=== PATIENT | female | born 1970 | race Caucasian/White ===

== ENCOUNTER → 2016-07-01 | Outpatient (CLI) | payer OTHER ==
[~2016-07-01] MED LIST: CALCTAB93 PO; CELEBREX PO; COLA50CA3 PO; IRONTAB3 PO; ISOVUE-370 76% 100ML VIAL (Q9967) As Ordered ONE; NORCOTAB PO; VICODAN PO; VITAMIN D PO
--- NOTE | 2016-07-01 14:48 | REP ---
CT STUDY OF THE ABDOMEN AND PELVIS WITHOUT AND WITH IV CONTRAST: WITHOUT ORAL CONTRAST. HISTORY: Urinary tract infection, pain in bilateral flanks. Attention ureters and bladder. Comparison is made with images from CT study of the chest dated 12/13/2013. CT CONTRAST DOSE: 100 mL of Isovue-370 is administered intravenously by autoinjector. 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 Tubal ligation clamps are noted in the pelvis. Bowel gas pattern is normal. The lung bases are essentially clear with mild fibrotic changes. No pleural effusion or upper abdominal ascites is seen. The liver and the spleen are normal in size and homogeneous in texture. No adrenal lesion is seen on either side. No pancreatic abnormality is observed. The gallbladder is small and contracted in appearance but otherwise unremarkable. Precontrast images of the kidneys show no evidence of intrarenal calculus on either side. There is no evidence of hydronephrosis or hydroureter. The course of the distal ureters are obscured by spray artifact from the bilateral hip prostheses but otherwise unremarkable. No mass or cyst is seen in either kidney. Delayed scan images show no filling defect in the collecting system on either side. Urinary bladder is unremarkable. There is an anastomotic suture line in the rectum. This suggests a previous left colon resection and reanastomosis. A normal appendix is seen in the central pelvis. There is a cyst in the right ovary measuring 3.8 cm in greatest diameter. The uterus appears to be surgically absent. No abdominal wall defect is seen. Small and large intestinal bowel loops are unremarkable. No bony destructive lesion is seen. IMPRESSION: No evidence of hydronephrosis or urinary calculus on either side. There is a 3.7 cm cyst in the right ovary. [place] artifact is seen in the central pelvis from hip prostheses. The patient is status post hysterectomy, and tubal ligation clamps are seen in the pelvis. There also appears to be an anastomotic suture line in the rectum. Signed by Alden Rodriguez MD 07/01/2016 03:29 P
== END ==
LOC: M RAD 13:33
DX: R10.9 Unspecified abdominal pain (principal)
CPT/HCPCS: 74178; Q9967

== ENCOUNTER → 2016-07-13 | Outpatient (CLI) | payer OTHER ==
[~2016-07-13] MED LIST changes: -ISOVUE-370 76% 100ML VIAL (Q9967) As Ordered ONE
--- NOTE | 2016-07-14 10:00 | RADONC ---
RADIATION ONCOLOGY FOLLOWUP NOTE: DATE: 07/13/2016 CHART NO: [id number] DIAGNOSIS: Right breast cancer. STAGE: Stage II A, T2N0M0 Stage I A, M3xB0M0 ECOG PERFORMANCE STATUS: 0 Ms. Patel is a very pleasant 45-year-old white female with the diagnosis of two right-sided breast carcinomas; the first is a stage II A, T2N0M0 and the second is a stage I A, [id number]. Both were moderately differentiated invasive ductal carcinomas and were adjacent to each other. The patient presents today reporting that she is doing quite well with no complaints at this time related to her radiation therapy or disease. She is here for routine followup visit 2 years post completion of external beam radiation therapy. REVIEW OF SYSTEMS: The patient's review of systems is noncontributory. She denies nausea, vomiting, fevers, chills, night sweats, diplopia, headaches, anxiety or depression, anorexia, weight loss, visual disturbances, chest pain, urinary or bowel difficulties, bone pain, or neurological problems. PHYSICAL EXAMINATION: The patient is a well-developed, well-nourished female in no acute distress. HEENT exam is normocephalic, atraumatic. Extraocular movements are intact. There is no palpable cervical, supraclavicular, infraclavicular, axillary, or inguinal lymphadenopathy present. Lungs are clear to auscultation and percussion. Heart has a regular rate and rhythm. Abdomen is benign with no hepatosplenomegaly, masses, or tenderness. Breast examination reveals no masses or discharge bilaterally. Skeletal examination reveals no tenderness to pressure or percussion of the bony skeleton. Extremities reveal no clubbing, cyanosis, or edema. Neurologic exam is grossly intact, as is the remainder of the physical examination. ASSESSMENT The patient is clinically [place] at this time and will be seen by us again in 6 months for further followup. She will also continue to be followed by her other physicians as well. cc: Eryn Terry MD *Alek Andrews MD
== END ==
LOC: M ONCR 13:17
PROVIDERS: ATTEND Radiology Radiation Oncology
DX: C50.311 Malignant neoplasm of lower-inner quadrant of right female breast (principal)

== ENCOUNTER → 2016-07-19 | Outpatient (REF) | payer OTHER ==
[2016-07-19 20:43] LABS: FOLLICLE STIMULATING HORMONE 32.8 mIU/mL; LUTEINIZING HORMONE 18.8 mIU/mL
[2016-07-19 20:45] LABS: ESTRADIOL < 19.0 PG/ML
== END ==
LOC: M LAB REF 12:31
PROVIDERS: ATTEND Internal Medicine Medical Oncology
DX: C50.919 Malignant neoplasm of unspecified site of unspecified female breast (principal)

== ENCOUNTER → 2017-01-11 | Outpatient (CLI) | payer OTHER ==
[~2017-01-11] MED LIST changes: +AMOX500C; +CHLO0.12; +IBUP-1022 PO; +TAMO10TA; +TRAM50TA2 PO; +[UNRECOGNIZED DRUG - CODE]
--- NOTE | 2017-01-12 12:10 | RADONC ---
RADIATION ONCOLOGY FOLLOWUP NOTE DATE: 01/11/2017 CHART NUMBER: [id number] DIAGNOSIS: Right breast cancer. STAGE IIA, T2N0M0. STAGE 1A, [id number]. ECOG PERFORMANCE STATUS: 0 FOLLOWUP NOTE: Ms. Patel is a very pleasant 46-year-old white female with the diagnosis of two right-sided breast carcinomas, the first being a stage IIA, T2N0M0, and the second being a stage IA, [id number], both were moderately differentiated invasive ductal carcinomas and were adjacent to each other. The patient presents today reporting that she is doing quite well with no complaints at this time related to her radiation therapy or disease now 2-1/2 years post completion of external beam radiation therapy. The patient presents today reporting that she has had breast reconstruction done and she is quite happy with the results. The patient's review of systems is noncontributory. She denies nausea, vomiting, fevers, chills, night sweats, diplopia, headaches, anxiety or depression, anorexia, weight loss, visual disturbances, chest pain, urinary or bowel difficulties, bone pain, or neurological problems. PHYSICAL EXAMINATION: The patient is a well-developed, well-nourished female in no acute distress. HEENT exam is normocephalic, atraumatic. Extraocular movements are intact. There is no palpable cervical, supraclavicular, infraclavicular, axillary, or inguinal lymphadenopathy present. Lungs are clear to auscultation and percussion. Heart has a regular rate and rhythm. Abdomen is benign with no hepatosplenomegaly, masses, or tenderness. The patient's left breast is free of masses or discharge. Her right chest wall shows breast reconstruction present. There is no evidence of nodularity, ulceration, residual or recurrent disease present. Skeletal examination reveals no tenderness to pressure or percussion of the bony skeleton. Extremities reveal no clubbing, cyanosis, or edema. Neurologic exam is grossly intact, as is the remainder of the physical examination. ASSESSMENT: The patient is clinically [place] at this time and will be seen by us again in 6 months for further followup. She will also continue to be followed by Dr. Andrews and Dr. Eryn Terry as well. cc: MD Alek Felipe MD
== END ==
LOC: M ONCR 13:08
PROVIDERS: ATTEND Radiology Radiation Oncology
DX: C50.311 Malignant neoplasm of lower-inner quadrant of right female breast (principal)

== ENCOUNTER → 2017-01-13 | Outpatient (CLI) | payer OTHER ==
--- NOTE | 2017-01-13 17:23 | REPMRS ---
Patient History The patient states she had a clinical breast exam in December 2016.Family history of ovarian cancer in mother at age 50 or over, colorectal cancer in paternal aunt at age 50 or over, and breast cancer in maternal aunt at age 50. Benign radio exam breast specimen of the right breast, February 11, 2015. Benign stereotatic loc for ea lesion of the right breast, February 11, 2015. Took hormonal contraceptives for 4 years. Digital Mammo Screening Bilat: January 13, 2017 - Exam #: [id number] Bilateral CC and MLO view(s) were taken. Technologist: Trisha Monzon, Technologist Prior study comparison: January 12, 2016, bilateral digital mammo screening bilat performed at [facility]. January 06, 2015, digital mammo diagnostic bilateral performed at [facility]. FINDINGS: The breast tissue is heterogeneously dense. This may lower the sensitivity of mammography. There is no evidence of cancer on this mammogram. No significant changes when compared with prior studies. ASSESSMENT: BI-RADS/ACR category 2 mammogram. Benign finding(s). Recommendation Routine screening mammogram of both breasts in 1 year (for women over age 40). This mammogram was interpreted with the aid of an FDA-approved computer-aided dectection system. Electronically Signed By: Juancarlos Bass MD 01/13/17 0996
== END ==
LOC: M RAD 09:07
PROVIDERS: ATTEND Family Medicine
DX: Z12.31 Encounter for screening mammogram for malignant neoplasm of breast (principal)

== ENCOUNTER → 2017-01-19 | Outpatient (REF) | payer OTHER ==
[2017-01-19 14:08] LABS: ESTRADIOL 182.1 PG/ML; FOLLICLE STIMULATING HORMONE 66.1 mIU/mL; LUTEINIZING HORMONE 43.2 mIU/mL
== END ==
LOC: M LAB REF 12:48
PROVIDERS: ATTEND Internal Medicine Medical Oncology
DX: C50.919 Malignant neoplasm of unspecified site of unspecified female breast (principal)

== ENCOUNTER 2017-01-20 18:35 | Emergency (ER) | payer OTHER ==
[~2017-01-20] VITALS: Ht 167.6 cm; Wt 70.0 kg
[~2017-01-20 18:35] MED LIST changes: -AMOX500C; -CHLO0.12; -IBUP-1022 PO; -TAMO10TA; -TRAM50TA2 PO; -[UNRECOGNIZED DRUG - CODE]
[2017-01-20 18:36] VITALS: BP 145/91
[2017-01-20] MEDS ORDERED: CHLO0.12 (18:46)
[2017-01-20] MEDS ORDERED: [UNRECOGNIZED DRUG - CODE] (18:46)
[2017-01-20] MEDS ORDERED: AMOX500C (18:46)
[2017-01-20] MEDS ORDERED: TAMO10TA (18:46)
[2017-01-20] MEDS ORDERED: IBUP-1022 PO (20:22)
[2017-01-20] MEDS ORDERED: TRAM50TA2 PO (20:22)
--- NOTE | 2017-01-20 20:27 | ED PDOC ---
Post-Departure Follow-Up pt has contacted police and is seeking an order of protection. 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 ok to send pt home with one tramadol, as she is driving Toribio Holguin Jan 20, 2017 20:27
[2017-01-20] MEDS ORDERED: IBUPROFEN 600 MG TAB PO ONE (20:30)
[2017-01-20] MEDS ORDERED: traMADol 50 MG TAB PO ONE (20:30)
== END 2017-01-20 21:00 | disposition home or self-care (01) ==
LOC: M ED 18:35
DX: S46.911A Strain of unspecified muscle, fascia and tendon at shoulder and upper arm level, right arm, initial encounter (principal); Y04.8XXA Assault by other bodily force, initial encounter; Y92.9 Unspecified place or not applicable; Y93.9 Activity, unspecified; Y99.9 Unspecified external cause status; M75.101 Unspecified rotator cuff tear or rupture of right shoulder, not specified as traumatic; Z79.899 Other long term (current) drug therapy; Z88.6 Allergy status to analgesic agent; Z88.1 Allergy status to other antibiotic agents; Z88.5 Allergy status to narcotic agent; Z91.040 Latex allergy status

== ENCOUNTER → 2017-07-12 | Outpatient (CLI) | payer OTHER | LOC: M ONCR 11:24 | DX: Z08 Encounter for follow-up examination after completed treatment for malignant neoplasm (principal); Z85.3 Personal history of malignant neoplasm of breast | CPT/HCPCS: G0463 ==

== ENCOUNTER → 2017-07-24 | Outpatient (REF) | payer OTHER ==
[2017-07-24 13:41] LABS: ESTRADIOL 56.1 PG/ML
[2017-07-24 13:41] LABS: LUTEINIZING HORMONE 33.1 mIU/mL
[2017-07-24 13:42] LABS: FOLLICLE STIMULATING HORMONE 53.4 mIU/mL
== END ==
LOC: M LAB REF 13:16
DX: C50.919 Malignant neoplasm of unspecified site of unspecified female breast (principal)
CPT/HCPCS: 83001

== ENCOUNTER → 2017-09-08 | Outpatient (CLI) | payer OTHER | LOC: M RAD 14:46 | DX: R91.8 Other nonspecific abnormal finding of lung field (principal) | CPT/HCPCS: 71250 ==

== ENCOUNTER → 2018-01-10 | Outpatient (CLI) | payer OTHER | LOC: M ONCR 11:29 | DX: C50.311 Malignant neoplasm of lower-inner quadrant of right female breast (principal); Z92.3 Personal history of irradiation | CPT/HCPCS: G0463 ==

== ENCOUNTER → 2018-03-01 | Outpatient (CLI) | payer OTHER | LOC: M RAD 17:24 | DX: Z12.31 Encounter for screening mammogram for malignant neoplasm of breast (principal); Z92.89 Personal history of other medical treatment; Z92.0 Personal history of contraception; Z80.41 Family history of malignant neoplasm of ovary | CPT/HCPCS: 77067 ==

== ENCOUNTER → 2018-04-03 | Outpatient (REF) | payer OTHER ==
[2018-04-03 18:23] LABS: APPEARANCE, URINE CLEAR (CLEAR); BACTERIA, URINE AUTO NEGATIVE (NEGATIVE); BILIRUBIN, URINE AUTO NEGATIVE (NEGATIVE); BLOOD, URINE BLOOD NEGATIVE (NEGATIVE); COLOR, URINE YELLOW (YELLOW); GLUCOSE, URINE (UA) AUTO NEGATIVE (NEGATIVE); KETONE, URINE AUTO NEGATIVE (NEGATIVE); LEUKOCYTE ESTERASE, URINE AUTO NEGATIVE (NEGATIVE); NITRITE, URINE AUTO NEGATIVE (NEGATIVE); PROTEIN, URINE AUTO NEGATIVE (NEGATIVE); RBC, URINE AUTO 0 /HPF (0-3); SPECIFIC GRAVITY URINE AUTO 1.012 (1.002-1.035); SQUAMOUS EPITHELIAL CELL UR AU 0 /HPF (0-6); UROBILINOGEN, URINE AUTO 0.2 mg/dL (0.0-2.0); WBC, URINE AUTO 0 /HPF (0-3)
== END ==
LOC: M LAB REF 16:29
DX: N39.0 Urinary tract infection, site not specified (principal)

== ENCOUNTER 2018-05-04 19:53 | Emergency (ER) | payer OTHER ==
[~2018-05-04] VITALS: Ht 167.6 cm; Wt 73.6 kg
[~2018-05-04 19:53] MED LIST changes: -CLAR10CA3 PO; -CLON0.5T8 PO; -CYCL10TA PO; -KETO10TAB PO
[2018-05-04 19:54] VITALS: BP 126/80
[2018-05-04] MEDS ORDERED: CLON0.5T8 PO (20:18)
[2018-05-04] MEDS ORDERED: CLAR10CA3 PO (20:18)
[2018-05-04] MEDS ORDERED: CYCLOBENZAPRINE 10 MG TAB PO ONE (22:00)
[2018-05-04] MEDS ORDERED: KETOROLAC TROMETHAMINE 10 MG TAB PO ONE (22:00)
[2018-05-04] MEDS ORDERED: KETO10TAB PO (22:25)
[2018-05-04] MEDS ORDERED: CYCL10TA PO (22:25)
--- NOTE | 2018-05-05 08:47 | REP ---
Right hand series: Four views. History: Injury in a fall. Findings: Four views right hand show overall normal mineralization. There is no visible fracture or subluxation. Osteoarthritis is seen at the first carpometacarpal and first metacarpal phalangeal articulations. Impression: No fracture seen. Electronically Signed by Alden Rodriguez MD 05/05/2018 08:39 A
--- NOTE | 2018-05-05 08:54 | REP ---
Right knee series: Five views. History: Injury in a fall. Findings: Five views of the right knee demonstrate diffuse osteopenia. There is osteoarthritic spurring in the medial, lateral, and patellofemoral compartments. There is well established spur formation. Sclerosis is seen on either side of the lateral compartment. No fracture is seen. There is a possible loose body posteriorly. Impression: No fracture noted. Three compartment osteoarthritis. Possible osteocartilaginous loose body posteriorly. Electronically Signed by Alden Rodriguez MD 05/05/2018 09:27 A
== END 2018-05-04 22:36 | disposition home or self-care (01) ==
LOC: M ED 19:53
DX: S60.051A Contusion of right little finger without damage to nail, initial encounter (principal); S29.012A Strain of muscle and tendon of back wall of thorax, initial encounter; S83.91XA Sprain of unspecified site of right knee, initial encounter; W00.0XXA Fall on same level due to ice and snow, initial encounter; Y92.481 Parking lot as the place of occurrence of the external cause; F41.9 Anxiety disorder, unspecified; K90.0 Celiac disease; Z79.899 Other long term (current) drug therapy; Z88.1 Allergy status to other antibiotic agents; Z88.5 Allergy status to narcotic agent; Z88.8 Allergy status to other drugs, medicaments and biological substances; Z91.040 Latex allergy status; Z87.891 Personal history of nicotine dependence

== ENCOUNTER → 2018-05-04 | Outpatient (CLI) | payer OTHER ==
[~2018-05-04] MED LIST changes: +AMOX500C; +CELE100C PO; +CHLO0.12; +CLAR10CA3 PO; +CLON0.5T8 PO; +CYCL10TA PO; +GABA-1171 PO; +IBUP-1022 PO; +KETO10TAB PO; +TAMO10TA; +TAMO20TA8 PO; +TRAM50TA2 PO; +[UNRECOGNIZED DRUG - CODE]
[2018-05-04 10:22] LABS: BASO # 0.1 10^3/uL (0.0-0.2); EOS # 0.1 10^3/uL (0.0-0.50); EOS % 1.5 % (0.0-3.0); HEMATOCRIT 39.2 % (36.0-47.0); LYMPH # 1.5 10^3/uL (1.5-4.5); LYMPH % 20.6 % (24.0-44.0); MEAN CORPUSCULAR HEMOGLOBIN 30.6 pg (27.0-33.0); MEAN CORPUSCULAR HGB CONC 33.2 g/dl (32.0-36.5); MEAN CORPUSCULAR VOLUME 92.2 fl (80.0-96.0); MONO # 0.6 10^3/uL (0.0-0.8); MONO % 8.3 % (0.0-5.0); NEUTROPHILS # 4.9 10^3/uL (1.8-7.7); NEUTROPHILS % 68.3 % (36.0-66.0); PLATELET COUNT, AUTOMATED 298 10^3/uL (150-450); RED BLOOD COUNT 4.25 10^6/uL (4.00-5.40); WHITE BLOOD COUNT 7.1 10^3/uL (4.0-10.0)
[2018-05-04 10:54] LABS: ALBUMIN 3.7 GM/DL (3.2-5.2); ALT/SGPT 21 U/L (12-78); BILIRUBIN,TOTAL 0.3 MG/DL (0.2-1.0); BLOOD UREA NITROGEN 11 MG/DL (7-18); CALCIUM LEVEL 9.2 MG/DL (8.5-10.1); CARBON DIOXIDE LEVEL 26 MEQ/L (21-32); CHLORIDE LEVEL 106 MEQ/L (98-107); CHOLESTEROL LEVEL 187 MG/DL (<200); CHOLESTEROL RISK RATIO 2.428 (<5); CREATININE FOR GFR 0.79 MG/DL (0.55-1.30); FERRITIN 58 NG/ML (8-252); FREE T4 0.97 NG/DL (0.76-1.46); GLOMERULAR FILTRATION RATE > 60.0 (>58); GLUCOSE, FASTING 84 MG/DL (70-100); HDL CHOLESTEROL 77 MG/DL (>40); IRON (FE) 98 UG/DL (50-170); LDL CHOLESTEROL 98 MG/DL (<100); NON-HDL-C 110 MG/DL; PERCENT SATURATION 30.6 % (13.2-45.0); POTASSIUM SERUM 4.2 MEQ/L (3.5-5.1); SODIUM LEVEL 139 MEQ/L (136-145); TOTAL IRON BINDING CAPACITY 320 UG/DL (250-450); TOTAL PROTEIN 6.7 GM/DL (6.4-8.2); TRIGLYCERIDES LEVEL 61 MG/DL (<150)
== END ==
LOC: M LAB 09:42
PROVIDERS: ATTEND Physician Assistant
DX: D64.9 Anemia, unspecified (principal); Z13.29 Encounter for screening for other suspected endocrine disorder; N64.4 Mastodynia

== ENCOUNTER → 2018-07-25 | Outpatient (CLI) | payer OTHER ==
[~2018-07-25] MED LIST changes: +CLAR10CA3 PO; +CLON0.5T8 PO; +CYCL10TA PO; +KETO10TAB PO
--- NOTE | 2018-07-26 06:53 | RADONC ---
RADIATION ONCOLOGY FOLLOW-UP NOTE DATE: 07/25/2018 CHART NUMBER: [id number] DIAGNOSIS: Right breast cancer. STAGE: IIA, T2N0M0. STAGE: IA, N6rT0A3. ECOG PERFORMANCE STATUS: 0 FOLLOW-UP NOTE: Ms. Patel is a delightful 47-year-old white female with the diagnosis of two right-sided breast carcinomas, the first being a stage IIA, T2N0M0, and the second being a stage IA, G2rQ0C8, moderately differentiated invasive ductal carcinoma. She is presenting to us today for routine follow-up visit 4 years post completion of external beam radiation therapy. The patient presents today reporting that she is doing quite well with no complaints at this time related to her radiation therapy or disease. She has no breast or bone pain. REVIEW OF SYSTEMS: The patient's review of systems is noncontributory. She denies nausea, vomiting, fevers, chills, night sweats, diplopia, headaches, anxiety or depression, anorexia, weight loss, visual disturbances, chest pain, urinary or bowel difficulties, bone pain, or neurological problems. PHYSICAL EXAMINATION: The patient is a well-developed, well-nourished white female in no acute distress. HEENT exam is normocephalic, atraumatic. Extraocular movements are intact. There is no palpable cervical, supraclavicular, infraclavicular, axillary, or inguinal lymphadenopathy present. Lungs are clear to auscultation and percussion. Heart has a regular rate and rhythm. Abdomen is benign with no hepatosplenomegaly, masses, or tenderness. Breast examination reveals no masses or discharge bilaterally. Skeletal examination reveals no tenderness to pressure or percussion of the bony skeleton. Extremities reveal no clubbing, cyanosis, or edema. Neurologic exam is grossly intact, as is the remainder of the physical examination. ASSESSMENT: The patient is clinically [place] at this time. Since she is being followed and managed so closely by her medical oncologist, Dr. Terry, I have discharged her from our follow-up except on a p.r.n. basis. cc: MD Alek Felipe MD
== END ==
LOC: M ONCR 14:44
PROVIDERS: ATTEND Radiology Radiation Oncology
DX: Z85.3 Personal history of malignant neoplasm of breast (principal); Z92.3 Personal history of irradiation

== ENCOUNTER → 2019-02-18 | Outpatient (CLI) | payer OTHER ==
[~2019-02-18] MED LIST changes: +FLUT15.820 NARES; +IBUP80TA PO; +MULTTAB20 PO; +PROAAER10 INH; +SENN1TAB89 PO
--- NOTE | 2019-02-18 10:06 | REPMRS ---
Patient History The patient states she had a clinical breast exam in July 2018. Patient has history of cancer in the right breast at age 42, had previous chest radiation therapy at age 42, and had previous chemotherapy at age 42. Family history of breast cancer at age 50 in maternal aunt, ovarian cancer at age 50 or over in mother, colorectal cancer at age 50 or over in paternal aunt, colorectal cancer at age 38 in maternal cousin, colorectal cancer at age 52 in maternal cousin. Benign radio exam breast specimen of the right breast, February 11, 2015. Benign stereotatic loc for ea lesion of the right breast, February 11, 2015. Took hormonal contraceptives for 4 years. Taking tamoxifen for 5 years. 3D TOMOSYNTHESIS WAS PERFORMED. Digital Mammo Screening Bilat: February 18, 2019 - Exam #: [id number] Bilateral CC and MLO view(s) were taken. Technologist: Trisha Monzon, Technologist Prior study comparison: March 01, 2018, bilateral digital mammo screening bilat performed at [facility]. January 13, 2017, bilateral digital mammo screening bilat performed at [facility]. FINDINGS: The breast tissue is heterogeneously dense. This may lower the sensitivity of mammography. There has been no change in the appearance of the mammogram from the prior studies. There is a moderate amount of residual fibroglandular tissue which is fairly symmetric. There is no interval development of dominant mass, areas of architectural distortion, or clustered microcalcification typical of malignancy. Assessment: BI-RADS/ACR category 1 mammogram. Negative Mammogram. Recommendation Routine screening mammogram in 1 year (for women over age 40). This mammogram was interpreted with the aid of an FDA-approved computer-aided dectection system. Electronically Signed By: Juancarlos Bass MD 02/18/19 0562
== END ==
LOC: M RAD 09:14
PROVIDERS: ATTEND Nurse Practitioner Family
DX: Z12.31 Encounter for screening mammogram for malignant neoplasm of breast (principal); Z85.3 Personal history of malignant neoplasm of breast; Z80.3 Family history of malignant neoplasm of breast; Z80.0 Family history of malignant neoplasm of digestive organs

== ENCOUNTER → 2019-02-19 | Outpatient (CLI) | payer OTHER ==
--- NOTE | 2019-02-19 13:01 | PFTRPT ---
Height: 66.00 Inches Weight: 167.00 Lbs BSA: 1.85 Diagnosis: R06.00 DATE OF PROCEDURE: 02/19/2019 ORDERED BY: Jaime Loza PA-C Spirometry: Pre and post bronchodilator study of excellent technical quality. Forced vital capacity normal. FEV1 in proportion. Obstructive index is, therefore, normal. Flow Volume Loop: Expiratory limb of the flow volume loop is reasonably normal. No significant bronchodilator response identified. Lung Volumes: Total lung capacity normal. Residual volume is generally in proportion. Diffusing Capacity: Diffusing capacity, although mildly reduced, is appropriate for alveolar volume. Hemoglobin: Hemoglobin acceptable at 14.6. Airway Mechanics: Airway resistance and conductance are normal. IMPRESSION: Minimal reduction in the absolute diffusing capacity requires clinical correlation. MTDD
== END ==
LOC: M CARPUL 12:16
PROVIDERS: ATTEND Physician Assistant
DX: R06.00 Dyspnea, unspecified (principal)

== ENCOUNTER → 2019-03-12 | Outpatient (CLI) | payer OTHER ==
[~2019-03-12] MED LIST changes: +METHACHOLINE KIT (J7674) INH ONE
--- NOTE | 2019-03-12 13:02 | PFTRPT ---
Site: [facility], [address] [place], [address] ID: [id number] Name: HAKEEM PEDROZA Visit Date: 03/12/2019 Second ID: [id number] Referring Doctor: JILLIAN Loza Marcus, M Reviewing Doctor: Chetan Nunez MD English Adjunct Faculty: Dione FULTON RRT Age: 48 : 1970 Sex: Female Race: Height: 66.00 Inches Weight: 174.00 Lbs BSA: 1.89 Order IDs: [id number] Requested Test(s): <RESP-PFT.METH CHAL> Diagnosis: R06.00 of albuterol for postbronchodilator. Review Status: Not Reviewed Pre-Bronch Post-Bronch Pred Actual %Pred Actual %Chng SPIROMETRY FVC (L) 3.85 3.20 83 2.99 -6 FEV1 (L) 3.08 2.60 84 2.45 -5 FEV1/FVC (%) 81 81 100 82 1 FEF 25% (L/sec) 5.52 5.75 104 4.72 -17 FEF 50% (L/sec) 4.03 3.24 80 2.95 -9 FEF 75% (L/sec) 1.52 1.00 65 0.67 -33 FEF 25-75% (L/sec) 3.02 2.62 86 2.14 -18 FEF Max (L/sec) 7.16 5.90 82 4.75 -19 FIVC (L) 2.99 2.83 -5 FIF 50% (L/sec) 3.88 3.21 82 2.56 -20 FIF Max (L/sec) 3.78 2.80 -25 Expiratory Time (sec) 6.28 6.85 9 Back Extrap Vol (L) 0.10 0.15 59 Time To FEFmax (sec) 0.107 0.183 71
== END ==
LOC: M CARPUL 12:13
PROVIDERS: ATTEND Physician Assistant
DX: R06.00 Dyspnea, unspecified (principal)
CPT/HCPCS: 94070; J7674

== ENCOUNTER → 2019-04-11 | Outpatient (CLI) | payer OTHER ==
[~2019-04-11] MED LIST changes: +CLON0.5T2 PO; -CLON0.5T8 PO; -METHACHOLINE KIT (J7674) INH ONE
[2019-04-12 11:46] LABS: HEPATITIS B CORE ANTIBODY IGM NEGATIVE (NEGATIVE); HEPATITIS B SURFACE ANTIBODY NEGATIVE (POSITIVE); HEPATITIS B SURFACE ANTIGEN NEGATIVE (NEGATIVE); RUBELLA IgG QUALITATIVE IMMUNE (IMMUNE)
== END ==
LOC: M LAB 16:25
PROVIDERS: ATTEND Physician Assistant
DX: Z01.84 Encounter for antibody response examination (principal)

== ENCOUNTER 2019-11-13 15:41 | Emergency (ER) | payer OTHER ==
[~2019-11-13] VITALS: Ht 167.6 cm; Wt 78.6 kg
[~2019-11-13 15:41] MED LIST changes: +CYCL-707 PO; -CYCL10TA PO
[2019-11-13] MEDS ORDERED: CETI-24 PO (15:51)
[2019-11-13 17:14] LABS: BASO % 0.4 % (0.0-1.0); EOS # 0.2 10^3/uL (0.0-0.5); HEMATOCRIT 38.6 % (36.0-47.0); HEMOGLOBIN 12.6 g/dl (12.0-15.5); LYMPH # 1.7 10^3/uL (1.5-5.0); LYMPH % 20.5 % (24.0-44.0); MEAN CORPUSCULAR HEMOGLOBIN 30.4 pg (27.0-33.0); MEAN CORPUSCULAR HGB CONC 32.6 g/dl (32.0-36.5); MONO # 0.6 10^3/uL (0.0-0.8); MONO % 7.3 % (0.0-5.0); NEUTROPHILS # 5.6 10^3/uL (1.5-8.5); NEUTROPHILS % 68.4 % (36.0-66.0); PLATELET COUNT, AUTOMATED 251 10^3/uL (150-450); RED BLOOD COUNT 4.15 10^6/uL (4.00-5.40); WHITE BLOOD COUNT 8.1 10^3/uL (4.0-10.0)
[2019-11-13] MEDS ORDERED: EXPOSURE KIT-ADULT 7 DAY SUPPLY PO ONE (17:15)
[2019-11-13] MEDS ORDERED: TRUVTAB PO (17:16)
[2019-11-13] MEDS ORDERED: RALT40TA PO (17:16)
[2019-11-13 17:32] VITALS: BP 140/86
[2019-11-13 17:42] LABS: ALBUMIN 3.4 GM/DL (3.2-5.2); ALT/SGPT 23 U/L (12-78); BILIRUBIN,TOTAL 0.2 MG/DL (0.2-1.0); BLOOD UREA NITROGEN 8 MG/DL (7-18); CALCIUM LEVEL 8.9 MG/DL (8.5-10.1); CARBON DIOXIDE LEVEL 30 MEQ/L (21-32); CHLORIDE LEVEL 110 MEQ/L (98-107); CREATININE FOR GFR 0.77 MG/DL (0.55-1.30); GLOMERULAR FILTRATION RATE > 60.0 (>58); GLUCOSE, FASTING 86 MG/DL (70-100); POTASSIUM SERUM 4.2 MEQ/L (3.5-5.1); SODIUM LEVEL 142 MEQ/L (136-145); TOTAL PROTEIN 6.4 GM/DL (6.4-8.2)
[2019-11-13 17:50] LABS: HEPATITIS B SURFACE ANTIBODY NEGATIVE (POSITIVE)
[2019-11-13] MEDS ORDERED: TRUVADA 200MG/300MG TABLET PO ONE (18:00)
[2019-11-13] MEDS ORDERED: RALTEGRAVIR 400 MG TAB (ISENTRESS) PO ONE (18:00)
[2019-11-13 18:01] LABS: HEPATITIS B SURFACE ANTIGEN NEGATIVE (NEGATIVE)
[2019-11-13 18:29] LABS: HEPATITIS C VIRUS ABY INDEX 0.1 INDEX (<0.8)
[2019-11-13 18:30] LABS: HIV 1&2 SCREEN CENTAUR NEGATIVE (NEGATIVE)
[2019-11-14] MEDS ORDERED: TRUVADA 200MG/300MG TABLET PO SCH
[2019-11-14] MEDS ORDERED: RALTEGRAVIR 400 MG TAB (ISENTRESS) PO SCH
== END 2019-11-13 17:58 | disposition home or self-care (01) ==
LOC: M ED 15:41
DX: Z77.21 Contact with and (suspected) exposure to potentially hazardous body fluids (principal); Z88.1 Allergy status to other antibiotic agents; Z88.6 Allergy status to analgesic agent; Z79.899 Other long term (current) drug therapy

== ENCOUNTER → 2019-11-28 | Outpatient (CLI) | payer OTHER ==
[~2019-11-28] MED LIST changes: +CETI-24 PO; +RALT40TA PO; +TRUVTAB PO
[2020-01-14 14:07] LABS: HERPES ZOSTER, VARICELLA IgG SEE SEPARATE REPORT; MUMPS VIRUS IgG ANTIBODY SEE SEPARATE REPORT (NEGATIVE); RUBEOLA IgG ANTIBODY SEE SEPARATE REPORT
[2020-01-25 16:08] LABS: HEPATITIS B SURFACE ANTIGEN NEGATIVE (NEGATIVE)
== END ==
LOC: M LAB 14:20
PROVIDERS: ATTEND Physician Assistant
DX: Z01.84 Encounter for antibody response examination (principal)

== ENCOUNTER → 2020-10-28 | Outpatient (CLI) | payer OTHER ==
[~2020-10-28] MED LIST changes: +EMTR1TAB16 PO; -TRUVTAB PO
[2020-10-28 13:20] LABS: APPEARANCE, URINE CLEAR (CLEAR); BACTERIA, URINE AUTO NEGATIVE (NEGATIVE); BILIRUBIN, URINE AUTO NEGATIVE (NEGATIVE); BLOOD, URINE BLOOD NEGATIVE (NEGATIVE); COLOR, URINE YELLOW (YELLOW); GLUCOSE, URINE (UA) AUTO NEGATIVE (NEGATIVE); KETONE, URINE AUTO NEGATIVE (NEGATIVE); LEUKOCYTE ESTERASE, URINE AUTO NEGATIVE (NEGATIVE); MUCUS, URINE SMALL (NEGATIVE); NITRITE, URINE AUTO NEGATIVE (NEGATIVE); PROTEIN, URINE AUTO NEGATIVE (NEGATIVE); RBC, URINE AUTO 0 /HPF (0-3); SPECIFIC GRAVITY URINE AUTO 1.018 (1.002-1.035); SQUAMOUS EPITHELIAL CELL UR AU 0 /HPF (0-6); UROBILINOGEN, URINE AUTO 0.2 mg/dL (0.0-2.0); WBC, URINE AUTO 0 /HPF (0-3)
[2020-10-28 13:22] LABS: BASO # 0.1 10^3/uL (0.0-0.2); BASO % 0.8 % (0.0-1.0); EOS # 0.3 10^3/uL (0.0-0.5); EOS % 3.5 % (0.0-3.0); HEMATOCRIT 40.1 % (36.0-47.0); HEMOGLOBIN 13.2 g/dl (12.0-15.5); LYMPH # 1.6 10^3/uL (1.5-5.0); LYMPH % 20.4 % (24.0-44.0); MEAN CORPUSCULAR HGB CONC 32.9 g/dl (32.0-36.5); MEAN CORPUSCULAR VOLUME 94.1 fl (80.0-96.0); MONO # 0.6 10^3/uL (0.0-0.8); MONO % 6.9 % (2.0-8.0); NEUTROPHILS # 5.4 10^3/uL (1.5-8.5); NEUTROPHILS % 68.1 % (36.0-66.0); PLATELET COUNT, AUTOMATED 271 10^3/uL (150-450); RED BLOOD COUNT 4.26 10^6/uL (4.00-5.40)
[2020-10-28 13:54] LABS: ALBUMIN 3.3 GM/DL (3.2-5.2); ALT/SGPT 24 U/L (12-78); BILIRUBIN,TOTAL 0.3 MG/DL (0.2-1.0); BLOOD UREA NITROGEN 14 MG/DL (7-18); CALCIUM LEVEL 8.9 MG/DL (8.5-10.1); CARBON DIOXIDE LEVEL 27 MEQ/L (21-32); CHLORIDE LEVEL 107 MEQ/L (98-107); CREATININE FOR GFR 0.67 MG/DL (0.55-1.30); GLOMERULAR FILTRATION RATE > 60.0 (>58); GLUCOSE, FASTING 81 MG/DL (70-100); POTASSIUM SERUM 3.8 MEQ/L (3.5-5.1); SODIUM LEVEL 140 MEQ/L (136-145); TOTAL PROTEIN 6.6 GM/DL (6.4-8.2)
[2020-10-28 13:57] LABS: TOTAL 25(OH) VITAMIN D 128.1 NG/ML (30.0-100.0)
== END ==
LOC: M LAB 11:40
PROVIDERS: ATTEND Nurse Practitioner Family
DX: Z00.00 Encounter for general adult medical examination without abnormal findings (principal)

== ENCOUNTER → 2021-01-22 | Outpatient (REF) | payer OTHER | LOC: M LAB REF 20:12 | PROVIDERS: ATTEND Physician Assistant | DX: J01.90 Acute sinusitis, unspecified (principal) ==

== ENCOUNTER → 2021-10-20 | Outpatient (REF) | payer OTHER ==
[~2021-10-20] MED LIST changes: +BACTDSTA PO; +DITR5TAB PO; +SYMB16INH INH; +VITA100093 PO
== END ==
LOC: M LAB REF 17:19
PROVIDERS: ATTEND Physician Assistant
DX: L03.116 Cellulitis of left lower limb (principal)

== ENCOUNTER 2021-10-22 11:20 | Inpatient (IN) | payer OTHER ==
[~2021-10-22] VITALS: Ht 167.6 cm; Wt 89.5 kg
[~2021-10-22 11:20] MED LIST changes: -BACTDSTA PO; -DITR5TAB PO; -SYMB16INH INH; -VITA100093 PO
[2021-10-22] MEDS ORDERED: SYMB16INH INH (11:35)
[2021-10-22] MEDS ORDERED: BACTDSTA PO (11:35)
[2021-10-22] MEDS ORDERED: DITR5TAB PO (11:35)
[2021-10-22 15:00] LABS: BASO # 0.1 10^3/uL (0.0-0.2); BASO % 0.5 % (0.0-1.0); EOS # 0.3 10^3/uL (0.0-0.5); EOS % 1.8 % (0.0-3.0); HEMATOCRIT 39.5 % (36.0-47.0); HEMOGLOBIN 12.9 g/dl (12.0-15.5); LYMPH % 13.9 % (24.0-44.0); MEAN CORPUSCULAR HEMOGLOBIN 30.6 pg (27.0-33.0); MEAN CORPUSCULAR HGB CONC 32.7 g/dl (32.0-36.5); MEAN CORPUSCULAR VOLUME 93.8 fl (80.0-96.0); MONO # 0.7 10^3/uL (0.0-0.8); MONO % 4.9 % (2.0-8.0); NEUTROPHILS # 11.4 10^3/uL (1.5-8.5); NEUTROPHILS % 78.5 % (36.0-66.0); PLATELET COUNT, AUTOMATED 448 10^3/uL (150-450); RED BLOOD COUNT 4.21 10^6/uL (4.00-5.40); WHITE BLOOD COUNT 14.6 10^3/uL (4.0-10.0)
[2021-10-22 15:18] LABS: ERYTHROCYTE SEDIMENTATION RATE 78 mm/hr (0-20)
[2021-10-22] MEDS ORDERED: VANCOMYCIN HCL 1,750 MG in IV FLUID PLACE HOLDER 1 EA IV ONE (15:25)
[2021-10-22] MEDS ORDERED: VANCOMYCIN HCL 1,000 MG, VIAL MATE ADAPTER 1 EACH in NS 250 ML IV ONE (15:30)
[2021-10-22] MEDS ORDERED: VANCOMYCIN HCL 750 MG, VIAL MATE ADAPTER 1 EACH in NS 250 ML IV ONE (15:30)
[2021-10-22 15:35] LABS: RSV AMPLIFICATION NEGATIVE (NEGATIVE)
[2021-10-22 16:44] LABS: BLOOD UREA NITROGEN 10 MG/DL (7-18); C REACTIVE PROTEIN QUANTITATIV 8.46 MG/DL (0.00-0.30); CALCIUM LEVEL 9.3 MG/DL (8.5-10.1); CARBON DIOXIDE LEVEL 23 MEQ/L (21-32); CHLORIDE LEVEL 110 MEQ/L (98-107); CREATININE FOR GFR 0.93 MG/DL (0.55-1.30); GLOMERULAR FILTRATION RATE > 60.0 (>58); GLUCOSE, FASTING 81 MG/DL (70-100); POTASSIUM SERUM 4.8 MEQ/L (3.5-5.1); SODIUM LEVEL 141 MEQ/L (136-145)
[2021-10-22] MEDS ORDERED: VITA100093 PO (17:07)
[2021-10-22] MEDS ORDERED: HOME MED LIST COMPLETE! XX SCH (17:10)
[2021-10-22] MEDS ORDERED: clonazePAM 0.5 MG TAB PO PRN (17:40)
[2021-10-22] MEDS ORDERED: ISOVUE-370 76% 100ML VIAL As Ordered ONE (17:52)
[2021-10-22 18:00] VITALS: BP 127/78
[2021-10-22] MEDS: SYMBICORT 160/4.5MCG INHALER 6GM INH SCH (19:54)
[2021-10-22] MEDS: KETOROLAC 30 MG/ML 1ML VIAL IV PRN (20:03)
[2021-10-22] MEDS: oxyBUTYnin *DITROPAN XL* 5 MG TABCR PO SCH (20:03)
[2021-10-22] MEDS: ACETAMINOPHEN TAB 650MG DOSE (2X325MG) PO PRN (21:41)
[2021-10-22] MEDS: VANCOMYCIN HCL 1,000 MG, VIAL MATE ADAPTER 1 EACH in NS 250 ML IV SCH (21:46)
[2021-10-22 22:00] VITALS: BP 131/87
[2021-10-23] MEDS: VANCOMYCIN HCL 1,000 MG, VIAL MATE ADAPTER 1 EACH in NS 250 ML IV SCH ×2 (05:15→18:10)
[2021-10-23 05:18] VITALS: BP 107/71
[2021-10-23 06:37] LABS: HEMATOCRIT 33.8 % (36.0-47.0); MEAN CORPUSCULAR HEMOGLOBIN 30.2 pg (27.0-33.0); MEAN CORPUSCULAR HGB CONC 32.2 g/dl (32.0-36.5); MEAN CORPUSCULAR VOLUME 93.6 fl (80.0-96.0); PLATELET COUNT, AUTOMATED 391 10^3/uL (150-450); RED BLOOD COUNT 3.61 10^6/uL (4.00-5.40)
[2021-10-23 06:39] LABS: HEMOGLOBIN 10.9 g/dl (12.0-15.5)
[2021-10-23 06:54] LABS: BLOOD UREA NITROGEN 11 MG/DL (7-18); CALCIUM LEVEL 9.1 MG/DL (8.5-10.1); CARBON DIOXIDE LEVEL 26 MEQ/L (21-32); CHLORIDE LEVEL 111 MEQ/L (98-107); CREATININE FOR GFR 0.72 MG/DL (0.55-1.30); GLOMERULAR FILTRATION RATE > 60.0 (>58); GLUCOSE, FASTING 125 MG/DL (70-100); POTASSIUM SERUM 3.7 MEQ/L (3.5-5.1); SODIUM LEVEL 140 MEQ/L (136-145)
[2021-10-23] MEDS: SYMBICORT 160/4.5MCG INHALER 6GM INH SCH ×2 (07:35→19:52)
[2021-10-23 08:15] LABS: INR 0.89; PROTHROMBIN TIME 12.4 SECONDS (12.7-14.5)
[2021-10-23 08:16] LABS: PARTIAL THROMBOPLASTIN TIME 28.5 SECONDS (25.9-37.0)
[2021-10-23] MEDS: FLUTICASONE PROP 0.05% NASAL SPRAY 16 GM (FLONASE) NARES SCH (08:25)
[2021-10-23] MEDS: SENOKOT S TAB PO SCH (08:26)
[2021-10-23] MEDS: CETIRIZINE (ZyrTEC) 10 MG TAB PO SCH (08:26)
[2021-10-23] MEDS: KETOROLAC 30 MG/ML 1ML VIAL IV PRN ×2 (08:26→14:24)
[2021-10-23] MEDS: oxyBUTYnin *DITROPAN XL* 5 MG TABCR PO SCH ×2 (08:26→21:01)
[2021-10-23] MEDS: VITAMIN D 1,000 INTERNATIONAL UNITS TABLET PO SCH (08:26)
[2021-10-23] MEDS: ENOXAPARIN 40MG/0.4ML SYRINGE (J1650 PER 10MG) SC SCH (08:27)
[2021-10-23] MEDS: TAMOXIFEN CITRATE 10 MG TAB PO SCH (08:42)
[2021-10-23] MEDS: ACETAMINOPHEN TAB 650MG DOSE (2X325MG) PO PRN ×2 (11:00→16:14)
[2021-10-23 14:00] VITALS: BP 125/85
[2021-10-23] MEDS: NICOTINE POLACRILEX 4 MG PO PRN ×3 (16:13→21:12)
[2021-10-23] MEDS ORDERED: ONDANSETRON 4MG 2ML VIAL IV PRN (20:30)
[2021-10-23] MEDS: carisoprodoL 350 MG TAB PO PRN (21:00)
[2021-10-23] MEDS ORDERED: NORCO, ANEXSIA 5/325MG TABLET (HYDROcodone/ACETAMINOPHEN) PO ONE (21:00)
[2021-10-23 22:00] VITALS: BP 129/88
[2021-10-24 06:00] VITALS: BP 114/73
[2021-10-24] MEDS: VANCOMYCIN HCL 1,000 MG, VIAL MATE ADAPTER 1 EACH in NS 250 ML IV SCH ×2 (06:30→18:15)
[2021-10-24 06:48] LABS: HEMATOCRIT 33.1 % (36.0-47.0); HEMOGLOBIN 10.8 g/dl (12.0-15.5); MEAN CORPUSCULAR HEMOGLOBIN 30.3 pg (27.0-33.0); MEAN CORPUSCULAR HGB CONC 32.6 g/dl (32.0-36.5); MEAN CORPUSCULAR VOLUME 92.7 fl (80.0-96.0); PLATELET COUNT, AUTOMATED 400 10^3/uL (150-450); RED BLOOD COUNT 3.57 10^6/uL (4.00-5.40); WHITE BLOOD COUNT 8.7 10^3/uL (4.0-10.0)
[2021-10-24 07:08] LABS: BLOOD UREA NITROGEN 7 MG/DL (7-18); C REACTIVE PROTEIN QUANTITATIV 3.38 MG/DL (0.00-0.30); CARBON DIOXIDE LEVEL 28 MEQ/L (21-32); CHLORIDE LEVEL 108 MEQ/L (98-107); GLOMERULAR FILTRATION RATE > 60.0 (>58); GLUCOSE, FASTING 83 MG/DL (70-100); POTASSIUM SERUM 4.1 MEQ/L (3.5-5.1); SODIUM LEVEL 141 MEQ/L (136-145)
[2021-10-24 07:18] LABS: ERYTHROCYTE SEDIMENTATION RATE 70 mm/hr (0-20)
[2021-10-24] MEDS: SYMBICORT 160/4.5MCG INHALER 6GM INH SCH ×2 (07:25→20:06)
[2021-10-24] MEDS: FLUTICASONE PROP 0.05% NASAL SPRAY 16 GM (FLONASE) NARES SCH (08:47)
[2021-10-24] MEDS: ACETAMINOPHEN TAB 650MG DOSE (2X325MG) PO PRN (08:48)
[2021-10-24] MEDS: SENOKOT S TAB PO SCH (08:48)
[2021-10-24] MEDS: CETIRIZINE (ZyrTEC) 10 MG TAB PO SCH (08:48)
[2021-10-24] MEDS: oxyBUTYnin *DITROPAN XL* 5 MG TABCR PO SCH ×2 (08:48→20:48)
[2021-10-24] MEDS: VITAMIN D 1,000 INTERNATIONAL UNITS TABLET PO SCH (08:48)
[2021-10-24] MEDS: TAMOXIFEN CITRATE 10 MG TAB PO SCH (08:49)
[2021-10-24] MEDS: ENOXAPARIN 40MG/0.4ML SYRINGE (J1650 PER 10MG) SC SCH (10:09)
[2021-10-24] MEDS: NICOTINE POLACRILEX 4 MG PO PRN ×2 (10:11→18:15)
[2021-10-24] MEDS ORDERED: PERCOCET 5MG/325MG TAB PO PRN ×2 (10:20)
[2021-10-24] MEDS: NORCO, ANEXSIA 5/325MG TABLET (HYDROcodone/ACETAMINOPHEN) PO PRN ×2 (12:39→19:02)
[2021-10-24 14:00] VITALS: BP 119/75
[2021-10-24 22:00] VITALS: BP 117/76
[2021-10-25 06:00] VITALS: BP 105/59
[2021-10-25] MEDS: VANCOMYCIN HCL 1,000 MG, VIAL MATE ADAPTER 1 EACH in NS 250 ML IV SCH (06:21)
[2021-10-25] MEDS: NORCO, ANEXSIA 5/325MG TABLET (HYDROcodone/ACETAMINOPHEN) PO PRN ×3 (06:22→19:47)
[2021-10-25 06:38] LABS: HEMATOCRIT 32.4 % (36.0-47.0); HEMOGLOBIN 10.8 g/dl (12.0-15.5); MEAN CORPUSCULAR HGB CONC 33.3 g/dl (32.0-36.5); MEAN CORPUSCULAR VOLUME 93.1 fl (80.0-96.0); PLATELET COUNT, AUTOMATED 403 10^3/uL (150-450); RED BLOOD COUNT 3.48 10^6/uL (4.00-5.40); WHITE BLOOD COUNT 9.2 10^3/uL (4.0-10.0)
[2021-10-25 06:54] LABS: BLOOD UREA NITROGEN 8 MG/DL (7-18); CALCIUM LEVEL 9.1 MG/DL (8.5-10.1); CARBON DIOXIDE LEVEL 26 MEQ/L (21-32); CHLORIDE LEVEL 110 MEQ/L (98-107); CREATININE FOR GFR 0.66 MG/DL (0.55-1.30); GLOMERULAR FILTRATION RATE > 60.0 (>58); GLUCOSE, FASTING 95 MG/DL (70-100); POTASSIUM SERUM 3.9 MEQ/L (3.5-5.1); SODIUM LEVEL 143 MEQ/L (136-145)
[2021-10-25] MEDS: SYMBICORT 160/4.5MCG INHALER 6GM INH SCH ×2 (07:49→19:52)
[2021-10-25 08:26] LABS: C REACTIVE PROTEIN QUANTITATIV 2.01 MG/DL (0.00-0.30)
[2021-10-25 09:06] LABS: ERYTHROCYTE SEDIMENTATION RATE 68 mm/hr (0-20)
[2021-10-25] MEDS: oxyBUTYnin *DITROPAN XL* 5 MG TABCR PO SCH ×2 (10:02→21:08)
[2021-10-25] MEDS: TAMOXIFEN CITRATE 10 MG TAB PO SCH (10:02)
[2021-10-25] MEDS: CETIRIZINE (ZyrTEC) 10 MG TAB PO SCH (10:02)
[2021-10-25] MEDS: ENOXAPARIN 40MG/0.4ML SYRINGE (J1650 PER 10MG) SC SCH (10:02)
[2021-10-25] MEDS: VITAMIN D 1,000 INTERNATIONAL UNITS TABLET PO SCH (10:02)
[2021-10-25] MEDS: SENOKOT S TAB PO SCH (10:02)
[2021-10-25] MEDS: FLUTICASONE PROP 0.05% NASAL SPRAY 16 GM (FLONASE) NARES SCH (10:03)
[2021-10-25 14:00] VITALS: BP 120/83
[2021-10-25] MEDS: VANCOMYCIN HCL 750 MG, VIAL MATE ADAPTER 1 EACH in NS 250 ML IV SCH (17:53)
[2021-10-25] MEDS: VANCOMYCIN HCL 500 MG in D5W MINI-BAG PLUS 100 ML IV SCH (19:46)
[2021-10-25 20:32] VITALS: BP 168/84
[2021-10-25] MEDS: carisoprodoL 350 MG TAB PO PRN (21:08)
[2021-10-25 21:12] VITALS: BP 124/83
[2021-10-26] MEDS: VANCOMYCIN HCL 750 MG, VIAL MATE ADAPTER 1 EACH in NS 250 ML IV SCH ×2 (05:48→18:27)
[2021-10-26] MEDS: NORCO, ANEXSIA 5/325MG TABLET (HYDROcodone/ACETAMINOPHEN) PO PRN ×3 (05:56→17:43)
[2021-10-26 07:28] LABS: HEMATOCRIT 33.9 % (36.0-47.0); HEMOGLOBIN 11.3 g/dl (12.0-15.5); MEAN CORPUSCULAR HEMOGLOBIN 30.7 pg (27.0-33.0); MEAN CORPUSCULAR HGB CONC 33.3 g/dl (32.0-36.5); MEAN CORPUSCULAR VOLUME 92.1 fl (80.0-96.0); PLATELET COUNT, AUTOMATED 435 10^3/uL (150-450); RED BLOOD COUNT 3.68 10^6/uL (4.00-5.40); WHITE BLOOD COUNT 9.9 10^3/uL (4.0-10.0)
[2021-10-26] MEDS: VANCOMYCIN HCL 500 MG in D5W MINI-BAG PLUS 100 ML IV SCH ×2 (07:28→21:39)
[2021-10-26] MEDS: SYMBICORT 160/4.5MCG INHALER 6GM INH SCH ×2 (07:31→20:43)
[2021-10-26 07:45] LABS: BLOOD UREA NITROGEN 8 MG/DL (7-18); CALCIUM LEVEL 8.7 MG/DL (8.5-10.1); CARBON DIOXIDE LEVEL 28 MEQ/L (21-32); CHLORIDE LEVEL 106 MEQ/L (98-107); GLOMERULAR FILTRATION RATE > 60.0 (>58); GLUCOSE, FASTING 110 MG/DL (70-100); SODIUM LEVEL 139 MEQ/L (136-145)
[2021-10-26] MEDS: oxyBUTYnin *DITROPAN XL* 5 MG TABCR PO SCH ×2 (09:00→21:21)
[2021-10-26] MEDS: VITAMIN D 1,000 INTERNATIONAL UNITS TABLET PO SCH (09:00)
[2021-10-26] MEDS: TAMOXIFEN CITRATE 10 MG TAB PO SCH (09:00)
[2021-10-26] MEDS: ENOXAPARIN 40MG/0.4ML SYRINGE (J1650 PER 10MG) SC SCH (09:01)
[2021-10-26] MEDS: CETIRIZINE (ZyrTEC) 10 MG TAB PO SCH (09:01)
[2021-10-26] MEDS: SENOKOT S TAB PO SCH (09:01)
[2021-10-26] MEDS: FLUTICASONE PROP 0.05% NASAL SPRAY 16 GM (FLONASE) NARES SCH (09:01)
[2021-10-26] MEDS: MUPIROCIN 2% OINT 22 GM TUBE TOP SCH ×2 (12:45→21:22)
[2021-10-26 14:00] VITALS: BP 120/81
[2021-10-26] MEDS: carisoprodoL 350 MG TAB PO PRN (21:21)
[2021-10-26 22:00] VITALS: BP 119/83
[2021-10-27] VITALS (9 sets, daily range): BP systolic 115–134; BP diastolic 74–92
[2021-10-27] MEDS ORDERED: NS 1,000 ML IV SCH (01:00)
[2021-10-27] MEDS: VANCOMYCIN HCL 750 MG, VIAL MATE ADAPTER 1 EACH in NS 250 ML IV SCH ×2 (06:41→18:24)
[2021-10-27] MEDS: SYMBICORT 160/4.5MCG INHALER 6GM INH SCH ×2 (07:21→21:00)
[2021-10-27] MEDS: ENOXAPARIN 40MG/0.4ML SYRINGE (J1650 PER 10MG) SC SCH (08:01)
[2021-10-27] MEDS: SENOKOT S TAB PO SCH (08:05)
[2021-10-27] MEDS: oxyBUTYnin *DITROPAN XL* 5 MG TABCR PO SCH ×2 (08:05→20:31)
[2021-10-27] MEDS: VANCOMYCIN HCL 500 MG in D5W MINI-BAG PLUS 100 ML IV SCH ×2 (08:05→20:31)
[2021-10-27] MEDS: CETIRIZINE (ZyrTEC) 10 MG TAB PO SCH (08:05)
[2021-10-27] MEDS: TAMOXIFEN CITRATE 10 MG TAB PO SCH (08:05)
[2021-10-27] MEDS: VITAMIN D 1,000 INTERNATIONAL UNITS TABLET PO SCH (08:05)
[2021-10-27] MEDS: FLUTICASONE PROP 0.05% NASAL SPRAY 16 GM (FLONASE) NARES SCH (08:06)
[2021-10-27] MEDS: MUPIROCIN 2% OINT 22 GM TUBE TOP SCH ×2 (08:06→20:51)
[2021-10-27] MEDS ORDERED: BACT800T5 PO (10:12)
[2021-10-27] MEDS ORDERED: MUPI2OI TOP (10:12)
[2021-10-27] MEDS ORDERED: HYDR-3715 PO (10:12)
[2021-10-27] MEDS ORDERED: HYDROMORPHONE HCL 0.5 MG/ 0.5 ML SYRINGE (J1170 PER 1) IV ONE (10:55)
[2021-10-27] MEDS ORDERED: KETOROLAC 30 MG/ML 1ML VIAL IV ONE (10:55)
[2021-10-27] MEDS ORDERED: MIDAZOLAM INJ 2MG/2ML VIAL (J2250 PER 1MG) As Ordered ONE (15:13)
[2021-10-27] MEDS ORDERED: propofoL 200 MG/20 ML VIAL As Ordered ONE (15:14)
[2021-10-27] MEDS ORDERED: fentaNYL 100 MCG/2 ML INJECTION As Ordered ONE (15:14)
[2021-10-27] MEDS ORDERED: LIDOCAINE 2% INJ 100 MG/5 ML SYRINGE As Ordered ONE (15:14)
[2021-10-27] MEDS ORDERED: dexameTHASONE 4 MG/ML 1ML VIAL (J1100 PER 1MG) As Ordered ONE (15:14)
[2021-10-27] MEDS ORDERED: ONDANSETRON 4MG 2ML VIAL As Ordered ONE (15:14)
[2021-10-27] MEDS ORDERED: ACETAMINOPHEN 1000MG 100ML IV BTL (OFIRMEV) (J0131 PER 10MG) As Ordered ONE (15:17)
[2021-10-27] MEDS ORDERED: ceFAZolin 1GM VIAL (J0690 PER 500MG) As Ordered ONE (15:19)
[2021-10-27] MEDS ORDERED: VANCOMYCIN 1000MG/20ML VIAL As Ordered ONE (15:54)
[2021-10-27] MEDS ORDERED: BUPIVACAINE LIPOSOME/PF 1.3% 20ML VIAL (13.3MG/ML)(EXPAREL) As Ordered ONE (15:54)
[2021-10-27] MEDS ORDERED: BUPIVACAINE HCL 0.25% 30ML VIAL As Ordered ONE (15:54)
[2021-10-27] MEDS ORDERED: ALBUTEROL SULFATE 2.5 MG/0.5 ML INH NEB SOLN INH ONE (16:35)
[2021-10-27] MEDS ORDERED: ONDANSETRON 4MG 2ML VIAL IV PRN (16:35)
[2021-10-27] MEDS ORDERED: LR 1,000 ML IV SCH (16:35)
[2021-10-27] MEDS ORDERED: NORCO, ANEXSIA 5/325MG TABLET (HYDROcodone/ACETAMINOPHEN) PO PRN (16:50)
[2021-10-27] MEDS: fentaNYL 100 MCG/2 ML INJECTION IV PRN ×2 (16:57→17:02)
[2021-10-27] MEDS ORDERED: NS 1,000 ML IV ONE (17:55)
[2021-10-27] MEDS ORDERED: HIBI4LIQ TOP (17:57)
[2021-10-27] MEDS: NORCO, ANEXSIA 5/325MG TABLET (HYDROcodone/ACETAMINOPHEN) PO PRN (18:27)
[2021-10-27] MEDS: carisoprodoL 350 MG TAB PO PRN (20:31)
[2021-10-28] MEDS: NORCO, ANEXSIA 5/325MG TABLET (HYDROcodone/ACETAMINOPHEN) PO PRN ×2 (01:00→07:19)
[2021-10-28 02:00] VITALS: BP 103/63
[2021-10-28] MEDS: VANCOMYCIN HCL 750 MG, VIAL MATE ADAPTER 1 EACH in NS 250 ML IV SCH (05:46)
[2021-10-28 06:00] VITALS: BP 102/64
[2021-10-28] MEDS: VANCOMYCIN HCL 500 MG in D5W MINI-BAG PLUS 100 ML IV SCH (07:16)
[2021-10-28] MEDS: SENOKOT S TAB PO SCH (07:16)
[2021-10-28] MEDS: TAMOXIFEN CITRATE 10 MG TAB PO SCH (07:16)
[2021-10-28] MEDS: VITAMIN D 1,000 INTERNATIONAL UNITS TABLET PO SCH (07:16)
[2021-10-28] MEDS: oxyBUTYnin *DITROPAN XL* 5 MG TABCR PO SCH (07:17)
[2021-10-28] MEDS: MUPIROCIN 2% OINT 22 GM TUBE TOP SCH (07:17)
[2021-10-28] MEDS: FLUTICASONE PROP 0.05% NASAL SPRAY 16 GM (FLONASE) NARES SCH (07:17)
[2021-10-28] MEDS: CETIRIZINE (ZyrTEC) 10 MG TAB PO SCH (07:17)
[2021-10-28] MEDS: SYMBICORT 160/4.5MCG INHALER 6GM INH SCH (08:06)
[2021-10-28 10:00] VITALS: BP 126/78
== END 2021-10-28 10:45 | disposition home or self-care (01) | DRG 501 ==
LOC: M ED 11:20 → M ED INP 15:46 → ENRESERV 17:16 → M MS5PR 17:55
PROVIDERS: ADMIT Internal Medicine; ATTEND General Practice
PROC: 0MBP0ZZ Excision of Left Knee Bursa and Ligament, Open Approach (ICD-10-PCS; principal; 2021-10-27 16:48)
DX: M71.162 Other infective bursitis, left knee (principal); L03.116 Cellulitis of left lower limb; M17.12 Unilateral primary osteoarthritis, left knee; B95.62 Methicillin resistant Staphylococcus aureus infection as the cause of diseases classified elsewhere; J45.909 Unspecified asthma, uncomplicated; F41.9 Anxiety disorder, unspecified; F17.210 Nicotine dependence, cigarettes, uncomplicated; Z85.3 Personal history of malignant neoplasm of breast; Z92.21 Personal history of antineoplastic chemotherapy; Z92.3 Personal history of irradiation; R32 Unspecified urinary incontinence; Z79.899 Other long term (current) drug therapy; Z96.643 Presence of artificial hip joint, bilateral; Z88.5 Allergy status to narcotic agent; Z88.8 Allergy status to other drugs, medicaments and biological substances; Z91.040 Latex allergy status; L40.8 Other psoriasis; F43.10 Post-traumatic stress disorder, unspecified

== ENCOUNTER → 2021-11-08 | Outpatient (CLI) | payer OTHER ==
[~2021-11-08] MED LIST changes: +BACT800T5 PO; +BACTDSTA PO; +DITR5TAB PO; +HIBI4LIQ TOP; +HYDR-3715 PO; +MUPI2OI TOP; +SYMB16INH INH; +VITA100093 PO
[2021-11-08 13:17] LABS: BASO # 0.1 10^3/uL (0.0-0.2); BASO % 0.9 % (0.0-1.0); EOS # 0.3 10^3/uL (0.0-0.5); EOS % 3.3 % (0.0-3.0); HEMATOCRIT 37.3 % (36.0-47.0); LYMPH # 1.8 10^3/uL (1.5-5.0); LYMPH % 20.7 % (24.0-44.0); MEAN CORPUSCULAR HGB CONC 32.2 g/dl (32.0-36.5); MEAN CORPUSCULAR VOLUME 93.3 fl (80.0-96.0); MONO # 0.6 10^3/uL (0.0-0.8); MONO % 6.5 % (2.0-8.0); NEUTROPHILS # 5.8 10^3/uL (1.5-8.5); NEUTROPHILS % 67.8 % (36.0-66.0); PLATELET COUNT, AUTOMATED 398 10^3/uL (150-450); WHITE BLOOD COUNT 8.6 10^3/uL (4.0-10.0)
[2021-11-08 14:32] LABS: ERYTHROCYTE SEDIMENTATION RATE 39 mm/hr (0-20)
== END ==
LOC: M PLALAB 09:49
PROVIDERS: ATTEND Internal Medicine Infectious Disease
DX: M70.42 Prepatellar bursitis, left knee (principal)
CPT/HCPCS: 36415; 85025; 85652; 86140; G0463

== ENCOUNTER 2022-02-07 09:50 | Day surgery (SDC) | payer OTHER ==
[~2022-02-07] VITALS: Ht 165.1 cm; Wt 86.6 kg
[~2022-02-07 09:50] MED LIST changes: +LIDO5DIS41 TD; +LIDOCAINE 2% 100MG/5ML SDV (FOR ANES.) As Ordered ONE; +MOTR200T44 PO; +NS 1,000 ML IV ONE; -TAMO10TA; +TAMO10TA8; +TAMO10TA8 PO; +VENTAER INH; +propofoL 200 MG/20 ML VIAL As Ordered ONE
[2022-02-07 11:40] VITALS: BP 135/88
== END 2022-02-07 11:46 | disposition home or self-care (01) ==
LOC: M OPP 09:50
PROVIDERS: ATTEND Internal Medicine Gastroenterology
DX: Z12.11 Encounter for screening for malignant neoplasm of colon (principal); K64.4 Residual hemorrhoidal skin tags; K64.8 Other hemorrhoids; Z79.1 Long term (current) use of non-steroidal anti-inflammatories (NSAID); Z79.2 Long term (current) use of antibiotics; Z79.51 Long term (current) use of inhaled steroids; Z79.810 Long term (current) use of selective estrogen receptor modulators (SERMs); Z79.899 Other long term (current) drug therapy; Z88.1 Allergy status to other antibiotic agents; Z88.5 Allergy status to narcotic agent; Z91.040 Latex allergy status; Z87.891 Personal history of nicotine dependence; J45.909 Unspecified asthma, uncomplicated; Z86.14 Personal history of Methicillin resistant Staphylococcus aureus infection; Z85.3 Personal history of malignant neoplasm of breast; F32.9 Major depressive disorder, single episode, unspecified; F41.9 Anxiety disorder, unspecified; Z92.21 Personal history of antineoplastic chemotherapy; Z92.3 Personal history of irradiation
CPT/HCPCS: 87428; G0121

== ENCOUNTER → 2024-08-23 | Outpatient (REF) | payer OTHER ==
[~2024-08-23] MED LIST changes: -LIDOCAINE 2% 100MG/5ML SDV (FOR ANES.) As Ordered ONE; -NS 1,000 ML IV ONE; +SENN-134 PO; -SENN1TAB89 PO; -propofoL 200 MG/20 ML VIAL As Ordered ONE
[2024-08-23 15:23] LABS: APPEARANCE, URINE HAZY (CLEAR); BACTERIA, URINE AUTO NEGATIVE (NEGATIVE); BILIRUBIN, URINE AUTO 2+ (NEGATIVE); BLOOD, URINE BLOOD NEGATIVE (NEGATIVE); COLOR, URINE YELLOW (YELLOW); GLUCOSE, URINE (UA) AUTO NEGATIVE (NEGATIVE); KETONE, URINE AUTO NEGATIVE (NEGATIVE); LEUKOCYTE ESTERASE, URINE AUTO NEGATIVE (NEGATIVE); MUCUS, URINE SMALL (NEGATIVE); NITRITE, URINE AUTO NEGATIVE (NEGATIVE); PROTEIN, URINE AUTO 1+ mg/dL (NEGATIVE); RBC, URINE AUTO 0 /HPF (0-3); SPECIFIC GRAVITY URINE AUTO 1.033 (1.002-1.035); SQUAMOUS EPITHELIAL CELL UR AU 2 /HPF (0-6); UROBILINOGEN, URINE AUTO 0.2 mg/dL (0.0-2.0); WBC, URINE AUTO 0 /HPF (0-3)
== END ==
LOC: M SMT 15:05
PROVIDERS: ATTEND Nurse Practitioner Family
DX: N39.46 Mixed incontinence (principal)